=== PATIENT | female | born 1940 | race Caucasian/White ===

== ENCOUNTER → 2021-12-07 10:21 | Outpatient (BNVA) | payer BC, MEDICARE, SELFPAY | PROVIDERS: PCP Internal Medicine Infectious Disease; Visit Provider Internal Medicine Rheumatology | DX: M35.00 Sjogren syndrome, unspecified (principal); M34.9 Systemic sclerosis, unspecified; Z79.899 Other long term (current) drug therapy; J84.9 Interstitial pulmonary disease, unspecified; J84.10 Pulmonary fibrosis, unspecified; I27.20 Pulmonary hypertension, unspecified; I73.00 Raynaud's syndrome without gangrene; J01.90 Acute sinusitis, unspecified; J96.11 Chronic respiratory failure with hypoxia | CPT/HCPCS: 99205 ==

== ENCOUNTER → 2022-06-13 13:31 | Outpatient (BNVA) | payer MEDICARE, SELFPAY | PROVIDERS: PCP Nurse Practitioner Family; Visit Provider Internal Medicine Rheumatology | DX: M34.9 Systemic sclerosis, unspecified (principal); M35.00 Sjogren syndrome, unspecified; Z79.899 Other long term (current) drug therapy; J84.9 Interstitial pulmonary disease, unspecified; J84.10 Pulmonary fibrosis, unspecified; I27.20 Pulmonary hypertension, unspecified; J01.90 Acute sinusitis, unspecified; I73.00 Raynaud's syndrome without gangrene | CPT/HCPCS: 99214 ==

== ENCOUNTER → 2022-07-19 11:27 | Outpatient (BNVA) | payer MEDICARE, SELFPAY | PROVIDERS: PCP Nurse Practitioner Family; Visit Provider Internal Medicine Rheumatology | DX: I73.00 Raynaud's syndrome without gangrene (principal); R58 Hemorrhage, not elsewhere classified; M35.00 Sjogren syndrome, unspecified; Z79.899 Other long term (current) drug therapy; M19.90 Unspecified osteoarthritis, unspecified site; M34.9 Systemic sclerosis, unspecified; R19.7 Diarrhea, unspecified; N89.8 Other specified noninflammatory disorders of vagina; J84.9 Interstitial pulmonary disease, unspecified; J84.10 Pulmonary fibrosis, unspecified; I27.20 Pulmonary hypertension, unspecified | CPT/HCPCS: 36415; 80076; 82565; 82784; 85025; 85610; 85730; 86140; 99215 ==